=== PATIENT | male | born 1945 | race American Indian/Alaskan Native ===

== ENCOUNTER 2018-06-21 13:02 | Outpatient (CLI) | payer MEDICARE ==
--- NOTE | 2018-06-21 19:53 | Vascular Lab Report ---
FINAL REPORT PROCEDURE: Right lower extremity duplex venous ultrasound. TECHNIQUE: Routine imaging of the deep venous system was performed. This included Doppler spectral a nalysis and color-flow imaging. HISTORY: RIGHT LEG SWELLING COMPARISON: No prior studies are available for comparison. FINDINGS: There is echogenic material in the popliteal vein and posterior tibial vein. These veins did not comp ress. The common femoral vein and superficial femoral vein are patent. Only 1 of the peroneal veins w as seen with blood flow and compression. IMPRESSION: Deep venous thrombosis as described.
== END 2018-06-21 13:03 | disposition home or self-care (01) ==
LOC: VAS 13:02
PROVIDERS: ATTEND Internal Medicine Hematology & Oncology
DX: I82.401 Acute embolism and thrombosis of unspecified deep veins of right lower extremity (principal)